=== PATIENT | male | born 1945 | race Caucasian/White ===

== ENCOUNTER 2020-05-21 11:54 | Emergency (ER) | payer MEDICARE ==
[2020-05-21 13:25] LABS: HEMOGLOBIN 13.3 gm/dl (14.0-17.5); RED BLOOD COUNT 4.47 M/UL (4.20-5.50); WHITE BLOOD COUNT 6.3 K/UL (4.5-11.0)
[2020-05-21 14:20] LABS: BUN/CREATININE RATIO 16 (0-10)
== END 2020-05-21 15:30 | disposition home or self-care (01) ==
LOC: ER1 11:54
PROVIDERS: Emergency Medicine
DX: I10 Essential (primary) hypertension (principal)
CPT/HCPCS: 71045; 80053; 82550; 82553; 83874; 84484; 85025; 85610; 85730; 93005; 96374; 96375; 99284